=== PATIENT | female | born 1995 | race Asian ===

== ENCOUNTER 2021-01-07 14:02 | Emergency (ER) | payer OTHER ==
[~2021-01-07] VITALS: Ht 170.2 cm; Wt 72.7 kg
[~2021-01-07 14:02] MED LIST: BIRTH CONTROL
[2021-01-07] MEDS ORDERED: PNV1TABL77 PO (14:05)
[2021-01-07 14:50] LABS: BASOPHILS % (AUTO) 0.6 % (0.0-2.0); HEMATOCRIT 41.8 % (36-46); HEMOGLOBIN 13.5 g/dL (12.0-16.0); LYMPHOCYTES # (AUTO) 2.2 K/uL (1.0-4.8); LYMPHOCYTES % (AUTO) 23.3 % (22.0-44.0); MEAN CORPUSCULAR HGB CONC 32.4 G/dL (31.0-37.0); MEAN CORPUSCULAR VOLUME 77 fL (80-100); MONOCYTES # (AUTO) 0.6 K/uL (0.1-1.0); MONOCYTES % (AUTO) 6.4 % (2.0-9.0); NEUTROPHILS # (AUTO) 6.4 K/uL (1.8-7.7); NEUTROPHILS % (AUTO) 68.7 % (40.0-70.0); PLATELET COUNT (AUTO) 346 K/uL (150-450); RED BLOOD CELL COUNT(AUTO) 5.41 MIL/uL (4.00-5.20); RED CELL DISTRIBUTION WIDTH 14.2 % (11.5-14.5)
[2021-01-07 15:21] LABS: CALCIUM, TOTAL 8.3 mg/dL (8.8-10.5); CREATININE 1.16 mg/dL (0.60-1.30)
[2021-01-07 15:25] LABS: BILIRUBIN,TOTAL 0.5 mg/dL (0.1-1.0); TOTAL PROTEIN, SERUM 7.5 g/dL (6.4-8.2)
[2021-01-07 16:06] LABS: APPEARANCE,URINE CLOUDY (CLEAR); BILIRUBIN,URINE NEGATIVE (NEGATIVE); GLUCOSE, URINE (UA) NEGATIVE (NEGATIVE); KETONES,URINE TRACE mg/dL (NEGATIVE); LEUKOCYTE ESTERASE ,URINE SMALL (NEGATIVE); NITRATE,URINE NEGATIVE (NEGATIVE); OCCULT BLOOD,URINE LARGE (NEGATIVE); PROTEIN,URINE NEGATIVE (NEGATIVE)
[2021-01-07 16:33] VITALS: BP 104/57
[2021-01-07 16:35] LABS: BACTERIA,URINE Many /HPF (None Seen); RBC,URINE 0-2 /HPF (0-2); SQUAMOUS EPITHELIAL CELL,UR Few /LPF (None Seen)
[2021-01-07] MEDS ORDERED: CEPHALEXIN MONOHYDRATE 500 MG CAPSULE PO ONE (16:45)
== END 2021-01-07 16:49 | disposition home or self-care (01) ==
LOC: EMS 14:04
DX: N39.0 Urinary tract infection, site not specified (principal); F12.90 Cannabis use, unspecified, uncomplicated
CPT/HCPCS: 76801; 76817; 80053; 81001; 84702; 85025; 86901; 87077; 87086; 87186; 99284

== ENCOUNTER 2021-03-27 13:38 | Inpatient (IN) | payer MEDICAID, OTHER ==
[~2021-03-27] VITALS: Ht 170.2 cm; Wt 71.9 kg
[~2021-03-27 13:38] MED LIST changes: -BIRTH CONTROL; +PNV1TABL77 PO
[2021-03-27 14:11] LABS: AMPHET/METH SCREEN,URINE NEGATIVE (NEGATIVE); BARBITURATE SCREEN, URINE NEGATIVE (NEGATIVE); BENZODIAZEPINES SCREEN,URINE NEGATIVE (NEGATIVE); CANNABINOID SCREEN,URINE POSITIVE (NEGATIVE); COCAINE SCREEN,URINE NEGATIVE (NEGATIVE); METHADONE SCREEN, URINE NEGATIVE (NEGATIVE); OPIATE SCREEN,URINE NEGATIVE (NEGATIVE); PHENCYCLIDINE SCREEN,URINE NEGATIVE (NEGATIVE)
[2021-03-27 14:16] LABS: BASOPHILS % (AUTO) 0.4 % (0.0-2.0); EOSINOPHILS % (AUTO) 0.2 % (1.0-6.0); HEMATOCRIT 41.9 % (36-46); HEMOGLOBIN 13.6 g/dL (12.0-16.0); LYMPHOCYTES # (AUTO) 1.5 K/uL (1.0-4.8); LYMPHOCYTES % (AUTO) 14.9 % (22.0-44.0); MEAN CORPUSCULAR HEMOGLOBIN 24.8 pg (26.0-34.0); MEAN CORPUSCULAR HGB CONC 32.5 G/dL (31.0-37.0); MEAN CORPUSCULAR VOLUME 76 fL (80-100); MONOCYTES # (AUTO) 0.9 K/uL (0.1-1.0); MONOCYTES % (AUTO) 8.3 % (2.0-9.0); NEUTROPHILS # (AUTO) 7.9 K/uL (1.8-7.7); NEUTROPHILS % (AUTO) 76.2 % (40.0-70.0); PLATELET COUNT (AUTO) 321 K/uL (150-450); RED BLOOD CELL COUNT(AUTO) 5.49 MIL/uL (4.00-5.20); RED CELL DISTRIBUTION WIDTH 13.3 % (11.5-14.5)
[2021-03-27 14:25] LABS: ANION GAP 10 mmol/L (8-16); CALCIUM, TOTAL 9.1 mg/dL (8.8-10.5); CARBON DIOXIDE 27 mmol/L (22-29); CHLORIDE 105 mmol/L (98-107); CREATININE 1.01 mg/dL (0.60-1.30); GLOMERULAR FILTR. RATE CALC > 60 mL/min (>60); GLUCOSE,RANDOM 115 mg/dL (70-110); POTASSIUM 3.9 mmol/L (3.5-5.1); SODIUM SERUM 142 mmol/L (136-145); UREA NITROGEN, BLOOD 13 mg/dL (7-18)
[2021-03-27 14:31] LABS: ALANINE AMINOTRANSFERASE 21 U/L (12-78); ALBUMIN 4.2 g/dL (3.4-5.0); ALKALINE PHOSPHATASE 56 U/L (46-116); ASPARTATE AMINOTRANSFERASE 18 U/L (15-37); BILIRUBIN,TOTAL 0.7 mg/dL (0.1-1.0); TOTAL PROTEIN, SERUM 7.9 g/dL (6.4-8.2)
[2021-03-27] MEDS ORDERED: PROMETHAZINE HCL 25 MG TABLET PO PRN (15:45)
[2021-03-27] MEDS ORDERED: HydrOXYzine PAMOATE 50 MG CAPSULE PO PRN (15:45)
[2021-03-27] MEDS ORDERED: LOPERAMIDE HCL 2 MG CAPSULE PO PRN (15:45)
[2021-03-27] MEDS ORDERED: LORazepam 2 MG TABLET PO PRN (15:45)
[2021-03-27] MEDS ORDERED: MAG HYDROX/AL HYDROX/SIMETH ES 30 ML SUSPENSION UDCUP PO PRN (15:45)
[2021-03-27] MEDS ORDERED: ZOLPIDEM TARTRATE 10 MG TABLET PO PRN (15:45)
[2021-03-27] MEDS ORDERED: MAGNESIUM HYDROXIDE SUSPENSION 30 ML UDCUP PO PRN (15:45)
[2021-03-27] MEDS ORDERED: ACETAMINOPHEN 325 MG TABLET PO PRN (15:45)
[2021-03-27] MEDS ORDERED: OLANZapine 5 MG RAPDIS TABLET PO PRN (15:45)
[2021-03-27] MEDS ORDERED: GuaiFENesin/D-METHORPHAN [SUGAR-FREE] 200-20MG/10 ML SYRUP UDCUP PO PRN (15:45)
[2021-03-27] MEDS ORDERED: TUBERCULIN, PURIFIED PROTEIN DERIVATIVE 5 TU/0.1 ML SYRINGE ID ONE (15:45)
[2021-03-27 16:20] LABS: COVID AG,FIA SOURCE NASOPHARYNGEAL
[2021-03-27] MEDS: THIAMINE 100 MG TABLET PO SCH (17:38)
[2021-03-27 18:00] VITALS: BP 139/90
[2021-03-27] MEDS: DIVALPROEX SODIUM 500 MG ER TABLET PO SCH (21:00)
[2021-03-27] MEDS: OLANZapine 5 MG RAPDIS TABLET PO SCH (22:30)
[2021-03-27] MEDS: MELATONIN 5 MG TABLET PO SCH (22:30)
[2021-03-28 07:33] LABS: FREE T4 (FREE THYROXINE) 1.11 ng/dL (0.76-1.46); THYROID STIMULATING HORMONE 0.98 uIU/mL (0.36-3.74)
[2021-03-28 07:37] LABS: HEMOGLOBIN A1C 5.1 % (3.8-5.6)
[2021-03-28] MEDS: MULTIVITAMINS WITH MINERALS, THERAPEUTIC TABLET PO SCH (09:16)
[2021-03-28] MEDS: THIAMINE 100 MG TABLET PO SCH ×2 (09:16→16:01)
[2021-03-28] MEDS: FOLIC ACID 1 MG TABLET PO SCH (09:16)
[2021-03-28] MEDS: NALTREXONE HCL 50 MG TABLET PO SCH (09:16)
[2021-03-28 10:56] VITALS: BP 146/95
[2021-03-28 16:13] VITALS: BP 123/90
[2021-03-28] MEDS: DIVALPROEX SODIUM 500 MG ER TABLET PO SCH (20:15)
[2021-03-28] MEDS: MELATONIN 5 MG TABLET PO SCH (20:15)
[2021-03-28] MEDS: OLANZapine 5 MG RAPDIS TABLET PO SCH (20:15)
[2021-03-29] MEDS: MULTIVITAMINS WITH MINERALS, THERAPEUTIC TABLET PO SCH (08:11)
[2021-03-29] MEDS: FOLIC ACID 1 MG TABLET PO SCH (08:11)
[2021-03-29] MEDS: NALTREXONE HCL 50 MG TABLET PO SCH (08:11)
[2021-03-29] MEDS: THIAMINE 100 MG TABLET PO SCH ×2 (08:11→16:13)
[2021-03-29 08:13] VITALS: BP 115/69
[2021-03-29 16:36] VITALS: BP 130/81
[2021-03-29] MEDS: DIVALPROEX SODIUM 500 MG ER TABLET PO SCH (20:12)
[2021-03-29] MEDS: MELATONIN 5 MG TABLET PO SCH (20:12)
[2021-03-29] MEDS: OLANZapine 10 MG RAPDIS TABLET PO SCH (20:13)
[2021-03-30 08:00] VITALS: BP 118/78
[2021-03-30] MEDS: NALTREXONE HCL 50 MG TABLET PO SCH (08:19)
[2021-03-30] MEDS: MULTIVITAMINS WITH MINERALS, THERAPEUTIC TABLET PO SCH (08:19)
[2021-03-30] MEDS: FOLIC ACID 1 MG TABLET PO SCH (08:19)
[2021-03-30] MEDS: THIAMINE 100 MG TABLET PO SCH ×2 (08:19→16:44)
[2021-03-30] MEDS: LITHIUM CARBONATE 300 MG CAPSULE PO SCH ×2 (12:00→16:44)
[2021-03-30 16:13] VITALS: BP 127/81
[2021-03-30] MEDS: DIVALPROEX SODIUM 500 MG ER TABLET PO SCH (21:06)
[2021-03-30] MEDS: OLANZapine 10 MG RAPDIS TABLET PO SCH (21:06)
[2021-03-30] MEDS: MELATONIN 5 MG TABLET PO SCH (21:06)
[2021-03-31 08:00] VITALS: BP 134/91
[2021-03-31] MEDS: THIAMINE 100 MG TABLET PO SCH (09:56)
[2021-03-31] MEDS: MULTIVITAMINS WITH MINERALS, THERAPEUTIC TABLET PO SCH (09:56)
[2021-03-31] MEDS: FOLIC ACID 1 MG TABLET PO SCH (09:56)
[2021-03-31] MEDS: NALTREXONE HCL 50 MG TABLET PO SCH (09:56)
[2021-03-31] MEDS ORDERED: DIVA-80 PO (16:15)
[2021-03-31] MEDS ORDERED: MELA5TAB3 PO (16:15)
[2021-03-31] MEDS ORDERED: OLAN10TA26 PO (16:15)
[2021-03-31] MEDS ORDERED: NALT50TA PO (16:15)
[2021-03-31 16:34] VITALS: BP 142/76
== END 2021-03-31 17:20 | disposition home or self-care (01) | DRG 753 ==
LOC: EMS 13:38 → 3EI 16:59
PROVIDERS: ADMIT Psychiatry & Neurology Psychiatry; ATTEND Psychiatry & Neurology Psychiatry
DX: F31.9 Bipolar disorder, unspecified (principal); F20.9 Schizophrenia, unspecified; F29 Unspecified psychosis not due to a substance or known physiological condition; Z20.822 Contact with and (suspected) exposure to COVID-19; G47.00 Insomnia, unspecified; Z79.899 Other long term (current) drug therapy
CPT/HCPCS: 80053; 80061; 80164; 83036; 84439; 84443; 85025; 86592; 99285; A9575; G0480

== ENCOUNTER 2022-12-16 09:05 | Emergency (ER) | payer MEDICAID, OTHER ==
[~2022-12-16] VITALS: Ht 170.2 cm; Wt 77.3 kg
[~2022-12-16 09:05] MED LIST changes: +DIVA500T53 PO; +MELA5TAB40 PO; +NALT50TA PO; +OLAN10TA26 PO; -PNV1TABL77 PO
[2022-12-16 10:05] VITALS: BP 133/77
[2022-12-16] MEDS ORDERED: ZOLP-280 PO (10:53)
[2022-12-16] MEDS ORDERED: LORA-1000 PO ×2 (10:55→13:59)
== END 2022-12-16 11:44 | disposition home or self-care (01) ==
LOC: EMS 09:10
DX: F31.9 Bipolar disorder, unspecified (principal); G47.00 Insomnia, unspecified; F12.90 Cannabis use, unspecified, uncomplicated; Z98.890 Other specified postprocedural states
CPT/HCPCS: 99284; Z7502